=== PATIENT | female | born 1965 | race Caucasian/White ===

== ENCOUNTER 2017-08-22 15:50 | Outpatient (RCR) | payer OTHER ==
[~2017-08-22 15:50] MED LIST: ALLOPURINOL300 MG PO; ASPIRIN325 MG PO; DEXILANT60 MG PO; LIPITOR PO; MULTIVITAMINS1 EAC7 PO; Z.0.CLINDAMYCIN HC30 PO; Z.0.LOTREL 10-20 M1 PO; Z.2.HYDROCODON-ACE1 PO; Z.2.METFORMIN HCL500 PO
== END 2017-09-04 ==
LOC: PT 15:50
PROVIDERS: ATTEND Specialist
DX: Z96.651 Presence of right artificial knee joint (principal); Z47.1 Aftercare following joint replacement surgery; M25.561 Pain in right knee; M25.661 Stiffness of right knee, not elsewhere classified; M62.81 Muscle weakness (generalized)
CPT/HCPCS: 97139

== ENCOUNTER → 2021-04-24 | Day surgery (SDC) | payer OTHER ==
[~2021-04-24] MED LIST changes: +ATORVASTATIN CA20 MG PO; +BUPROPION XL150 MG PO; +CINNAMON500 MG PO; +LIDOCAINE HCL 2% LOCAL INJ 5 ML SDV VIAL INJ ONE; +MELOXICAM7.5 MG PO; +METOCLOPRAMIDE HCL 10 MG/2ML VIAL ONE; +NEXIUM20 MG PO; +ONDANSETRON HCL INJ 2MG/ML 2ML 2 MG/ML VIAL ONE; +POVIDONE IODINE 0.05% 0.05 % ML PO ONE; +PROPOFOL IV EMULSION 10 MG/ML 20 ML VIAL ONE
[2021-04-24 10:52] VITALS: BP 116/62
== END | disposition home or self-care (01) ==
LOC: OR 08:29
PROVIDERS: ATTEND Internal Medicine Gastroenterology
DX: D64.9 Anemia, unspecified (principal); K62.1 Rectal polyp; K31.7 Polyp of stomach and duodenum; K29.70 Gastritis, unspecified, without bleeding; K44.9 Diaphragmatic hernia without obstruction or gangrene; K57.30 Diverticulosis of large intestine without perforation or abscess without bleeding; K64.8 Other hemorrhoids; K21.9 Gastro-esophageal reflux disease without esophagitis; E11.9 Type 2 diabetes mellitus without complications; I10 Essential (primary) hypertension; E78.00 Pure hypercholesterolemia, unspecified; M10.9 Gout, unspecified; Z01.810 Encounter for preprocedural cardiovascular examination; Z01.812 Encounter for preprocedural laboratory examination; Z20.822 Contact with and (suspected) exposure to COVID-19; Z79.84 Long term (current) use of oral hypoglycemic drugs; Z68.41 Body mass index [BMI] 40.0-44.9, adult
CPT/HCPCS: 36415; 43239; 45384; 82948; 93005; J2001; J2405; J2704; J2765; U0002; 45378

== ENCOUNTER 2022-11-03 11:12 | Observation (INO) | payer OTHER ==
[2022-10-29 12:59] LABS: BASOPHILS % 0.5 % (0.0-1.0); EOSINOPHILS # (AUTO) 0.1 (0.0-0.4); EOSINOPHILS % 1.6 % (0.0-6.0); LYMPHOCYTES # (AUTO) 1.6 (1.0-3.2); LYMPHOCYTES % 27.7 % (18.0-39.1); MEAN CORPUSCULAR HEMOGLOBIN 30.2 pg (28-32); MEAN CORPUSCULAR HGB CONC 31.6 g/dL (31-35); MEAN CORPUSCULAR VOLUME 95.7 fL (81-99); MONOCYTES # (AUTO) 0.4 (0.2-0.8); MONOCYTES % 6.7 % (4.4-11.3); NEUTROPHILS # (AUTO) 3.6 (2.1-6.9); NEUTROPHILS % 63.1 % (38.7-80.0); PLATELET COUNT 191 x10e3/uL (140-360); RED BLOOD COUNT 3.97 x10e6/uL (3.6-5.1); RED CELL DISTRIBUTION WIDTH 14.2 % (11.7-14.4)
[2022-10-29 13:18] LABS: ANION GAP 13.4 mmol/L (8-16); CALCIUM 11.3 mg/dL (8.4-10.2); CREATININE, SERUM 1.09 mg/dL (0.57-1.11); POTASSIUM 4.4 mmol/L (3.5-5.1)
[~2022-11-03] VITALS: Ht 182.9 cm; Wt 124.3 kg
[~2022-11-03 11:12] MED LIST changes: +ACCRUFER30 MG PO; -LIDOCAINE HCL 2% LOCAL INJ 5 ML SDV VIAL INJ ONE; -METOCLOPRAMIDE HCL 10 MG/2ML VIAL ONE; -ONDANSETRON HCL INJ 2MG/ML 2ML 2 MG/ML VIAL ONE; -POVIDONE IODINE 0.05% 0.05 % ML PO ONE; -PROPOFOL IV EMULSION 10 MG/ML 20 ML VIAL ONE; +PROTONIX20 MG PO
[2022-11-03] MEDS ORDERED: CEFAZOLIN SODIUM 2 GM ONE (11:55)
[2022-11-03] MEDS ORDERED: SUCCINYLCHOLINE CHLORIDE 20 MG/ML 10ML VIAL ONE (12:18)
[2022-11-03] MEDS ORDERED: POVIDONE IODINE 0.05% 0.05 % ML PO ONE (12:18)
[2022-11-03] MEDS ORDERED: ROCURONIUM BROMIDE 10 MG/ML 5ML VIAL IV ONE (12:18)
[2022-11-03] MEDS ORDERED: PROPOFOL IV EMULSION 10 MG/ML 20 ML VIAL ONE (12:18)
[2022-11-03] MEDS ORDERED: ONDANSETRON HCL INJ 2MG/ML 2ML 2 MG/ML VIAL ONE (12:18)
[2022-11-03] MEDS ORDERED: LIDOCAINE HCL 2% LOCAL INJ 5 ML SDV VIAL INJ ONE (12:18)
[2022-11-03] MEDS ORDERED: SEVOFLURANE INHAL SOLN 250 ML PEN BTL ONE (12:18)
[2022-11-03] MEDS ORDERED: HEPARIN SOD/SOD CHLORIDE 1,000 ML ONE (12:31)
[2022-11-03] MEDS ORDERED: MIDAZOLAM HCL 2 MG/2 ML VIAL ONE (12:39)
[2022-11-03] MEDS ORDERED: FENTANYL CITRATE/PF 100MCG/2 ML INJ ONE ×2 (12:39→13:42)
[2022-11-03] MEDS ORDERED: ONDANSETRON HCL INJ 2MG/ML 2ML 2 MG/ML VIAL IV PRN (13:15)
[2022-11-03] MEDS ORDERED: HYDROCODONE/APAP 5MG-325MG TAB PO PRN (13:15)
[2022-11-03] MEDS ORDERED: Morphine 4mg INJECTION 4 MG/ML INJ IV PRN (13:15)
[2022-11-03] MEDS ORDERED: DEXTROSE 50% SYRINGE 50 ML IV PRN (13:15)
[2022-11-03] MEDS ORDERED: SUGAMMADEX SODIUM 200 MG/2 ML VIAL IV ONE (13:16)
[2022-11-03 15:30] VITALS: BP 136/66
[2022-11-03] MEDS: SODIUM CHLORIDE 0.9% 1000ML 1,000 ML IV SCH (15:30)
[2022-11-03 16:02] VITALS: BP 136/66
[2022-11-03] MEDS: INSULIN LISPRO 100 UNIT/1 ML 3ML VIAL SQ SCH ×2 (16:30→21:00)
[2022-11-03] MEDS: METFORMIN HCL 500 MG TAB PO SCH ×2 (17:00→17:26)
[2022-11-03 19:55] VITALS: BP 135/62
[2022-11-04 00:40] VITALS: BP 127/74
[2022-11-04 04:40] VITALS: BP 125/78
[2022-11-04] MEDS: SODIUM CHLORIDE 0.9% 1000ML 1,000 ML IV SCH ×2 (04:55→09:50)
[2022-11-04 05:17] LABS: ANION GAP 12.4 mmol/L (8-16); CALCIUM 9.2 mg/dL (8.4-10.2); CREATININE, SERUM 1.03 mg/dL (0.57-1.11); POTASSIUM 4.4 mmol/L (3.5-5.1)
[2022-11-04] MEDS ORDERED: ULTRAM 50MG50 MG PO (06:23)
[2022-11-04] MEDS: INSULIN LISPRO 100 UNIT/1 ML 3ML VIAL SQ SCH ×2 (07:30→10:58)
[2022-11-04] MEDS: METFORMIN HCL 500 MG TAB PO SCH (08:00)
[2022-11-04 08:48] VITALS: BP 128/61
[2022-11-04] MEDS ORDERED: BENAZEPRIL PO SCH (09:00)
[2022-11-04] MEDS ORDERED: AMLODIPINE BESYLATE PO SCH (09:00)
[2022-11-04] MEDS ORDERED: ALLOPURINOL 300 MG TAB PO SCH (09:00)
[2022-11-04] MEDS ORDERED: AMLODIPINE BESYLATE 10 MG TAB PO SCH (09:00)
[2022-11-04] MEDS ORDERED: PANTOPRAZOLE SOD 40 MG TABEC PO SCH (09:00)
[2022-11-04] MEDS ORDERED: BENAZEPRIL HCL 10 MG TAB PO SCH (09:00)
[2022-11-04] MEDS ORDERED: [UNRECOGNIZED DRUG - OTHER] PO SCH (09:00)
[2022-11-04] MEDS ORDERED: MULTIVITAMINS/MINERALS TAB PO SCH (09:00)
[2022-11-04 09:50] VITALS: BP 128/61
[2022-11-04 12:36] VITALS: BP 117/61
[2022-11-04 12:50] LABS: CALCIUM 8.9 mg/dL (8.4-10.2)
[2022-11-04] MEDS ORDERED: ATORVASTATIN 40 MG TAB PO SCH (21:00)
== END 2022-11-04 14:30 | disposition home or self-care (01) ==
LOC: OR 11:12 → PACU V 13:12 → MED/SURG 15:30
PROVIDERS: ADMIT Surgery; ATTEND Surgery
DX: E21.0 Primary hyperparathyroidism (principal); E78.5 Hyperlipidemia, unspecified; Z20.822 Contact with and (suspected) exposure to COVID-19; I10 Essential (primary) hypertension; M10.9 Gout, unspecified; Z01.818 Encounter for other preprocedural examination
CPT/HCPCS: 0223U; 36415 ×3; 60500; 80048 ×2; 82310; 82948 ×2; 85025; 88305; 88331; 93005; G0378 ×2; J0330; J2001; J2250; J2405; J2704; J3010; J7030 ×2; 88304